=== PATIENT | born 1965 | race Caucasian/White ===

== ENCOUNTER 2019-01-30 08:58 | Day surgery (SDC) | payer OTHER ==
[~2019-01-30] VITALS: Ht 177.8 cm; Wt 89.2 kg
[~2019-01-30 08:58] MED LIST: OMEPRAZOLE
[2019-01-30 09:29] VITALS: Ht 177.8 cm; Wt 89.2 kg
[2019-01-30 10:00] VITALS: BP 137/74; PULSE 72; RESP 18
[2019-01-30] MEDS ORDERED: PROPOFOL 40 ML ONE (10:06)
[2019-01-30] MEDS ORDERED: PROPOFOL 20 ML ONE ×2 (10:47)
[2019-01-30 11:14] VITALS: BP 119/73; PULSE 63; RESP 24
== END 2019-01-30 11:31 | disposition home or self-care (01) ==
LOC: GIL 08:58
PROVIDERS: ATTEND Internal Medicine Gastroenterology
DX: R19.5 Other fecal abnormalities (principal); K64.8 Other hemorrhoids; K44.9 Diaphragmatic hernia without obstruction or gangrene; K21.9 Gastro-esophageal reflux disease without esophagitis; K29.50 Unspecified chronic gastritis without bleeding; B96.81 Helicobacter pylori [H. pylori] as the cause of diseases classified elsewhere
CPT/HCPCS: 43239; 45378; 88305; 88312; Z7610